=== PATIENT | female | born 1950 | race Caucasian/White ===

== ENCOUNTER 2017-11-29 15:08 | Outpatient (CLI) | payer OTHER ==
--- NOTE | 2017-11-29 16:27 | MMO ---
BILATERAL SCREENING MAMMOGRAMS: DATE: 11/29/17 Reference made to prior mammograms dating back to 08/19/13. This patient's mammogram was interpreted with the assistance of computer-aided detection. FINDINGS: Scattered fibroglandular elements are present bilaterally. There is a stable circumscribed benign-nae earing equal density mass of the outer central, anterior left breast. Benign-appearing calcification bilaterally is stable. No significant interval detrimental change. IMPRESSION: BIRADS 2: Benign Finding(s) Annual screening mammography is recommended. POS: MIRIAM
== END 2017-11-29 15:09 | disposition home or self-care (01) ==
LOC: SCSMAMMO 15:08
PROVIDERS: ATTEND Specialist
DX: Z12.31 Encounter for screening mammogram for malignant neoplasm of breast (principal)
CPT/HCPCS: 77067

== ENCOUNTER 2020-04-22 13:17 | Outpatient (CLI) | payer MEDICARE | END 2020-04-22 13:18 | disposition home or self-care (01) | LOC: BICRAD 13:17 | PROVIDERS: ATTEND Specialist | DX: M84.30XA Stress fracture, unspecified site, initial encounter for fracture (principal) ==